=== PATIENT | male | born 1935 | race Caucasian/White ===

== ENCOUNTER 2016-04-10 19:57 | Emergency (ER) | payer MEDICARE, BC ==
[2016-04-10 20:07] VITALS: BP 156/66
--- NOTE | 2016-04-10 20:36 | UC ---
Hip/Pelvis Pain - HPI Summary HPI Summary: complaint of right hip and right sacral pain that started 2 days ago woke up in the morning with severe pain on monday couldn't straighten up to walk for approx 1-2 hours started after he was sleeping in a donut shape pillow for 12 hours constant steady dull pain,non radiating pain sometimes when walking he gets a stabbing pain in buttock and right hip painful for 2 days aching pain cannot ambulate normally due to pain took a tylenol without relief denies fever, incontinence states he is depressed, lost his a year ago feels lonely no one else understands his references and experiences lonely d/t missing friends who have states that he has thought about d/t age and his losses and wonders how much longer he will be alive thinks about how he might but has no plans to end his life PCP is Sunitha Astorga - History Of Current Complaint Chief Complaint: UCLowerExtremity Stated Complaint: PAINFUL HIP Time Seen by Provider: 04/10/16 20:07 Hx Obtained From: Patient - Allergies/Home Medications Allergies/Adverse Reactions: Allergies Allergy/AdvReac Type Severity Reaction Status Date / Time tree pollen Allergy Intermediate See Comment Uncoded 04/10/16 20:08 PMH/Surg Hx/FS Hx/Imm Hx Previously Healthy: Yes Cardiovascular History Of: Reports: Hypertension Respiratory History Of: Reports: Bronchitis - Surgical History Surgical History: Yes Surgery Procedure, Year, and Place: tonsils; lumps L neck benign. "CAROTID ARTERY CLEANED OUT" - Family History Known Family History: Positive: Hypertension Negative: Cardiac Disease, Diabetes - Social History Occupation: Retired Lives: Alone Alcohol Use: Rare Substance Use Type: None Smoking Status (MU): Former Smoker When Did the Patient Quit Smoking/Using Tobacco: Review of Systems Constitutional: Negative Skin: Negative Eyes: Negative ENT: Negative Respiratory: Negative Cardiovascular: Negative Gastrointestinal: Negative Genitourinary: Negative Motor: Negative Neurovascular: Negative Musculoskeletal: Other: - right hip pain, right sacral pain Neurological: Negative Psychological: Negative All Other Systems Reviewed And Are Negative: Yes Physical Exam Triage Information Reviewed: Yes Appearance: Well-Nourished, Ill-Appearing, Thin Vital Signs: Initial Vital Signs Temp 97.5 F 04/10/16 20:00 Pulse 63 04/10/16 20:00 Resp 16 04/10/16 20:00 BP 156/66 04/10/16 20:00 Pulse Ox 100 04/10/16 20:00 Vital Signs Reviewed: Yes Eyes: Positive: Conjunctiva Clear ENT: Positive: Pharynx normal, TMs normal. Negative: Nasal congestion Neck: Positive: Supple, No Lymphadenopathy Respiratory: Positive: Lungs clear, Normal breath sounds, No respiratory distress Cardiovascular: Positive: RRR, No Murmur, Pulses Normal Abdomen Description: Positive: Nontender, Soft Bowel Sounds: Positive: Present Musculoskeletal: Positive: No Edema, Other: - tenderness in sacrum-right side no point tenderness in right hip uneven gait ,spine bent laterally toward right side Neurological: Positive: Alert, Other: - patellar relfexes intact Psychological Exam: Normal Skin Exam: Normal Hip Injury Course/Dx - Course Course Of Treatment: exam completed. x-rays shows scoliosis ,DDD ,and osteoarthritis throughout- no acute injuries. will give info for bereavment services with [facility]. will send to PT for further evaluation and treatment - Differential Dx/Diagnosis Differential Diagnosis/HQI/PQRI: Dislocation, Fracture, Sprain, Strain Provider Diagnoses: adjustment disorder-greiving. osteoarthritis, right hip pain, right sacral pain Discharge - Discharge Plan Condition: Stable Disposition: HOME Patient Education Materials: Depression (ED), Low Back Strain (ED), Hip Pain ( ED) Referrals: Valencia Rossi MD [Primary Care Provider] - Additional Instructions: Take acetaminophen for pain relief Please call physical therapist for further evaluation and treatment of your hip and back pain. Consider calling [facility] for bereavment counseling ad followup with Dr Leela Walsh for evaluation. Please review your discharge instructions. If your symptoms do not improve please call your primary care provider or return to urgent care.
[2016-04-10] MEDS ORDERED: Acetaminophen TAB* 325 MG PO ONE (20:39)
--- NOTE | 2016-04-10 21:18 | RAD ---
HISTORY: Pain, right sciatic pain COMPARISONS: None VIEWS: 3, Frontal view of the pelvis with frontal and frog-leg views of the right hip FINDINGS: BONE DENSITY: Normal. BONES: There is no displaced fracture. JOINTS: There is mild osteoarthritis of the hips and SI joints. ALIGNMENT: There is no dislocation. SOFT TISSUES: Unremarkable. OTHER FINDINGS: There is a scoliotic curvature of the spine IMPRESSION: OSTEOARTHRITIS. NO ACUTE OSSEOUS INJURY. IF SYMPTOMS PERSIST, RECOMMEND REPEAT IMAGING.
--- NOTE | 2016-04-10 21:19 | RAD ---
HISTORY: Sciatic pain COMPARISONS: August 17, 2013 VIEWS: 3 , Frontal, lateral, and coned-down lateral sacral views of the lumbar spine FINDINGS: ALIGNMENT: There is a levoscoliotic curvature of the spine VERTEBRAL BODIES: The vertebral body heights are normal. The interpedicular distances are normal. JOINTS: There is osteoarthritis of the facet joints most pronounced at L3-L4, L4-L5, and L5-S1. INTERVERTEBRAL DISCS: There is diffuse loss of intervertebral disc height. SOFT TISSUE: Unremarkable. OTHER: The pelvis is unremarkable. The lung bases are clear. IMPRESSION: SCOLIOSIS. DEGENERATIVE DISC DISEASE AND OSTEOARTHRITIS.
== END 2016-04-10 21:40 | disposition home or self-care (01) ==
LOC: UCEAST 19:57
DX: F43.20 Adjustment disorder, unspecified (principal); M16.11 Unilateral primary osteoarthritis, right hip; M53.3 Sacrococcygeal disorders, not elsewhere classified; Z87.891 Personal history of nicotine dependence
CPT/HCPCS: 72100; 99212; A9270-GY; G0463

== ENCOUNTER 2016-06-06 20:09 | Emergency (ER) | payer MEDICARE, BC ==
[2016-06-06 20:57] VITALS: BP 167/52
--- NOTE | 2016-06-06 21:11 | ED ---
Throat Pain/Nasal Congestion - HPI Summary HPI Summary: 80M presents with something caught in throat for an hour. He states that he swallowed a capsule and that it got caught in his throat. He states he started to cough and feels that it got caught in his wind pipe. He states that he feels the capsule is dissolving. He coughed up some piece of the capsule. He denies any chest pain or SOB. He is able to swallow water without difficulty. He denies a history of choking on objects. He states that he throat feels very raw now. - History of Current Complaint Chief Complaint: EDThroatPain Time Seen by Provider: 06/06/16 20:47 - Allergies/Home Medications Allergies/Adverse Reactions: Allergies Allergy/AdvReac Type Severity Reaction Status Date / Time tree pollen Allergy Intermediate See Comment Uncoded 04/10/16 20:08 PMH/Surg Hx/FS Hx/Imm Hx Cardiovascular History: Reports: Hx Hypertension, Other Cardiovascular Problems/ Disorders - CAROTID ARTERY Respiratory History: Reports: Other Respiratory Problems/Disorders - PNEUMONIA 30 YRS AGO Musculoskeletal History: Reports: Hx Scoliosis - hx T11 compression - Surgical History Surgery Procedure, Year, and Place: tonsils; lumps L neck benign. "CAROTID ARTERY CLEANED OUT" - Immunization History Date of Tetanus Vaccine: Unk Date of Influenza Vaccine: None Infectious Disease History: No Infectious Disease History: Denies: History Other Infectious Disease, Traveled Outside the [place] in Last 30 Days - Family History Known Family History: Positive: Hypertension Negative: Cardiac Disease, Diabetes - Social History Alcohol Use: Rare Substance Use Type: Reports: None Smoking Status (MU): Former Smoker Review of Systems Negative: Fever Positive: Sore Throat Negative: Chest Pain Positive: Cough. Negative: Shortness Of Breath All Other Systems Reviewed And Are Negative: Yes Physical Exam Triage Information Reviewed: Yes Vital Signs On Initial Exam: Initial Vitals Temp Pulse Resp BP Pulse Ox 98.8 F 79 20 171/66 99 06/06/16 20:10 06/06/16 20:10 06/06/16 20:10 06/06/16 20:10 06/06/16 20:10 Vital Signs Reviewed: Yes Appearance: Positive: Well-Appearing Skin: Positive: Warm, Dry Head/Face: Positive: Normal Head/Face Inspection Eyes: Positive: Normal, Conjunctiva Clear ENT: Positive: Normal ENT inspection, Pharynx normal, TMs normal Respiratory/Lung Sounds: Positive: Clear to Auscultation, Breath Sounds Present , Other - able to tolerate drinking water. Negative: Unable to speak in full sentences Cardiovascular: Positive: Normal, RRR Diagnostics - Vital Signs Vital Signs Temp Pulse Resp BP Pulse Ox 06/06/16 20:56 98.8 F 69 18 167/52 100 06/06/16 20:10 98.8 F 79 20 171/66 99 - Laboratory Lab Statement: Any lab studies that have been ordered have been reviewed, and results considered in the medical decision making process. EENT Course/Dx - Course Course Of Treatment: 80M presents with getting a capsule stuck in his throat. He is able to hold his own secretions and able to swallow water. he states he can feel that is it disolving. His respirations are unlabored on exam. reassured patient that capsule will dissolve can use cough drops for pain and to follow up with primary. patient understands and agrees with plan - Differential Diagnoses Differential Diagnoses: Foreign Body, Pharyngitis - Diagnoses Provider Diagnoses: Foreign body in throat Discharge - Discharge Plan Condition: Good Disposition: HOME Patient Education Materials: Foreign Body in Pharynx (ED) Referrals: Valencia Rossi MD [Primary Care Provider] - Additional Instructions: Drink fluids as tolerate Can use cough drops for pain Follow up with primary care physician within 5 days Return to ED if unable to swallow or any new or worsening symptoms
== END 2016-06-06 21:43 | disposition home or self-care (01) ==
LOC: ED 20:09
DX: J02.9 Acute pharyngitis, unspecified (principal); R05 Cough; Z87.891 Personal history of nicotine dependence; T17.208A Unspecified foreign body in pharynx causing other injury, initial encounter; X58.XXXA Exposure to other specified factors, initial encounter; Y93.9 Activity, unspecified; Y92.89 Other specified places as the place of occurrence of the external cause
CPT/HCPCS: 99281

== ENCOUNTER 2016-11-21 18:14 | Emergency (ER) | payer BC, MEDICARE ==
[2016-11-21 18:30] VITALS: BP 147/60
--- NOTE | 2016-11-21 18:44 | UC ---
Back Pain HPI - HPI Summary HPI Summary: 81 YEAR OLD MALE PRESENTS WITH RIGHT LOWER BACK PAIN/SPASM - History of Current Complaint Chief Complaint: UCLowerExtremity Stated Complaint: BACK & HIP PAIN,LEG WOUND Time Seen by Provider: 11/21/16 18:37 Hx Obtained From: Patient Onset/Duration: Sudden Onset Timing: Lasting Minutes Severity Initially: Moderate Severity Currently: Moderate Pain Scale Used: 0-10 Numeric - 6 Character: Sharp, Spasmodic Aggravating: Movement, Bending Alleviating: Rest, Position - Allergies/Home Medications Allergies/Adverse Reactions: Allergies Allergy/AdvReac Type Severity Reaction Status Date / Time tree pollen Allergy Intermediate See Comment Uncoded 04/10/16 20:08 Home Medications: Home Medications buPROPion TAB* [Wellbutrin TAB*] 75 mg PO BID 11/21/16 [History Confirmed ] PMH/Surg Hx/FS Hx/Imm Hx Previously Healthy: Yes - Surgical History Surgical History: Yes Surgery Procedure, Year, and Place: tonsils; lumps L neck benign. "CAROTID ARTERY CLEANED OUT" - Family History Known Family History: Positive: Hypertension Negative: Cardiac Disease, Diabetes - Social History Alcohol Use: Rare Substance Use Type: None Smoking Status (MU): Former Smoker When Did the Patient Quit Smoking/Using Tobacco: 1970's Review of Systems Constitutional: Negative Skin: Negative Eyes: Negative ENT: Negative Respiratory: Negative Cardiovascular: Negative Gastrointestinal: Negative Genitourinary: Negative Motor: Negative Neurovascular: Negative Musculoskeletal: Myalgia, Other: - RIGHT LOWER BACK PAIN/SPASM Neurological: Negative Psychological: Negative All Other Systems Reviewed And Are Negative: Yes Physical Exam Triage Information Reviewed: Yes Vital Signs: Initial Vital Signs Temp 37.1 C 11/21/16 18:21 Pulse 69 11/21/16 18:21 Resp 16 11/21/16 18:21 BP 147/60 11/21/16 18:21 Pulse Ox 99 11/21/16 18:21 Eye Exam: Normal ENT Exam: Normal Dental Exam: Normal Neck exam: Normal Neck: Positive: 1 Respiratory Exam: Normal Cardiovascular Exam: Normal Abdominal Exam: Normal Musculoskeletal: Positive: Other: - RIGHT LOWER BACK PAIN/SPASM Neurological Exam: Normal Psychological Exam: Normal Skin Exam: Normal Back Pain Course/Dx - Differential Dx/Diagnosis Provider Diagnoses: RIGHT LOWER BACK PAIN/SPASM Discharge - Discharge Plan Condition: Stable Disposition: HOME Prescriptions: Cephalexin CAP* [Keflex CAP*] 500 mg PO TID #30 cap Methocarbamol TAB* [Robaxin 500 MG TAB*] 500 mg PO TID PRN #30 tab PRN Reason: Spasms - Back Naproxen [Naprosyn 500 mg] 500 mg PO BID PRN #30 tab PRN Reason: Pain Patient Education Materials: Muscle Spasm (ED), Acute Wound Care (ED) Referrals: Tammi Tolliver [Medical Doctor] - Valencia Rossi MD [Primary Care Provider] -
== END 2016-11-21 19:09 | disposition home or self-care (01) ==
LOC: UCEAST 18:14
DX: M54.5 Low back pain (principal); M62.830 Muscle spasm of back; Z87.891 Personal history of nicotine dependence
CPT/HCPCS: 99212; G0463

== ENCOUNTER 2017-01-02 11:48 | Emergency (ER) | payer BC, MEDICARE ==
[2017-01-02 15:00] VITALS: BP 158/56
--- NOTE | 2017-01-02 16:27 | UC ---
Hip/Pelvis Pain - HPI Summary HPI Summary: Right hip pain on/off began April 2016, had an acute episode of pain with muscle spasm in November pain returns now--no injury - History Of Current Complaint Hx Obtained From: Patient Mechanism Of Injury: none Onset/Duration: Gradual Onset, Worse Since - pain few days Timing: Constant Severity Initially: Moderate Severity Currently: Moderate Pain Intensity: 4 Pain Scale Used: 0-10 Numeric Location: Diffuse - right hip and SI Joint Character Of Pain: Aching, Spasmodic, Stiffness Aggravating Factor(s): Movement Alleviating Factor(s): Nothing Associated Signs And Symptoms: Positive: Negative <Maribel Edwards - Last Filed: 01/02/17 16:39> <Mavis Durand - Last Filed: 01/02/17 17:23> - History Of Current Complaint Chief Complaint: UCLowerExtremity Stated Complaint: HIP PAIN Time Seen by Provider: 01/02/17 15:22 - Allergies/Home Medications Allergies/Adverse Reactions: Allergies Allergy/AdvReac Type Severity Reaction Status Date / Time tree pollen Allergy Intermediate See Comment Uncoded 01/02/17 15:00 PMH/Surg Hx/FS Hx/Imm Hx Previously Healthy: No Cardiovascular History: Cardiac Disease, Hypertension - Surgical History Surgical History: Yes Surgery Procedure, Year, and Place: tonsils; lumps L neck benign. "CAROTID ARTERY CLEANED OUT" - Family History Known Family History: Positive: Hypertension Negative: Cardiac Disease, Diabetes - Social History Occupation: Retired Lives: With Family Alcohol Use: Rare Substance Use Type: None Smoking Status (MU): Former Smoker When Did the Patient Quit Smoking/Using Tobacco: 1970's <Maribel Edwards - Last Filed: 01/02/17 16:39> Review of Systems Constitutional: Negative Skin: Negative Eyes: Negative ENT: Negative Respiratory: Negative Cardiovascular: Negative Gastrointestinal: Negative Genitourinary: Negative Motor: Negative Neurovascular: Negative Musculoskeletal: Arthralgia - right SI Joint area Neurological: Negative Psychological: Negative Is Patient Immunocompromised?: No All Other Systems Reviewed And Are Negative: Yes <Maribel Edwards - Last Filed: 01/02/17 16:39> Physical Exam Triage Information Reviewed: Yes Appearance: Well-Appearing, Well-Nourished, Pain Distress - right hip/SI Joint Vital Signs: Initial Vital Signs Temp 98.1 F 01/02/17 14:44 Pulse 58 01/02/17 14:44 Resp 16 01/02/17 14:44 BP 158/56 01/02/17 14:44 Pulse Ox 100 01/02/17 14:44 Vital Signs Reviewed: Yes Eye Exam: Normal Eyes: Positive: Conjunctiva Clear ENT Exam: Normal ENT: Positive: Normal ENT inspection, Hearing grossly normal. Negative: Nasal congestion, Nasal drainage, Trismus, Muffled/hoarse voice Dental Exam: Normal Neck exam: Normal Neck: Positive: Supple, Nontender Respiratory Exam: Normal Respiratory: Positive: Chest non-tender, No respiratory distress, No accessory muscle use Cardiovascular Exam: Normal Cardiovascular: Positive: RRR, Pulses Normal, Brisk Capillary Refill Musculoskeletal Exam: Normal Musculoskeletal: Positive: Strength Intact, ROM Intact, No Edema Neurological Exam: Normal Neurological: Positive: Alert, Muscle Tone Normal Psychological Exam: Normal Skin Exam: Normal <Maribel Edwards - Last Filed: 01/02/17 16:39> Vital Signs: Initial Vital Signs Temp 98.1 F 01/02/17 14:44 Pulse 58 01/02/17 14:44 Resp 16 01/02/17 14:44 BP 158/56 01/02/17 14:44 Pulse Ox 100 01/02/17 14:44 <Mavis Durand - Last Filed: 01/02/17 17:23> Hip Injury Course/Dx - Course Course Of Treatment: use naproxen as RX, pt and ortho referal, follow BP with PCP - Differential Dx/Diagnosis Differential Diagnosis/HQI/PQRI: Contusion, Dislocation, Fracture, Sciatica, Sprain, Strain Provider Diagnoses: Arthritis right Hip, Sciatica (R), High Blood pressure in poor control <Maribel Edwards - Last Filed: 01/02/17 16:39> Discharge <Maribel Edwards - Last Filed: 01/02/17 16:39> <Mavis Durand - Last Filed: 01/02/17 17:23> - Discharge Plan Condition: Stable Disposition: HOME Patient Education Materials: Osteoarthritis (ED), Hypertension (ED), Hip Pain ( ED) Referrals: Hao Lazaro MD [Medical Doctor] - 5 Days OValencia Carr MD [Primary Care Provider] - 2 Weeks Attestation Statement User Type: Provider - I was available for consult. This patient was seen by the JAMES. The patient was not presented to, seen by, or examined by me. -Anai <Mavis Durand - Last Filed: 01/02/17 17:23>
== END 2017-01-02 16:10 | disposition home or self-care (01) ==
LOC: UCEAST 11:48
DX: M16.11 Unilateral primary osteoarthritis, right hip (principal); I10 Essential (primary) hypertension; Z87.891 Personal history of nicotine dependence; M54.30 Sciatica, unspecified side; R03.0 Elevated blood-pressure reading, without diagnosis of hypertension
CPT/HCPCS: 99211; G0463

== ENCOUNTER 2017-05-05 15:27 | Emergency (ER) | payer MEDICARE, OTHER ==
[2017-05-05 20:24] VITALS: BP 159/62
--- NOTE | 2017-05-05 21:20 | UC ---
Skin Complaint HPI - HPI Summary HPI Summary: c/o cystic mass on right leg. This mass has been present for years since an insect bite. He received antibiotics in December after it became infected. The site healed and left a scab that fell off last week and ever since he has noticed some material oozing out of it. Denies pain, fever or swelling. Has been swimming every day and today he covered it with a plastic bandage. - History of Current Complaint Chief Complaint: UCLowerExtremity Time Seen by Provider: 05/05/17 21:09 Stated Complaint: FOOT COMPLAINT Pain Intensity: 0 - Allergy/Home Medications Allergies/Adverse Reactions: Allergies Allergy/AdvReac Type Severity Reaction Status Date / Time tree pollen Allergy Intermediate See Comment Uncoded 05/05/17 20:13 Home Medications: Home Medications Clopidogrel TAB* [Plavix TAB*] 75 mg PO DAILY 05/05/17 [History Confirmed ] buPROPion TAB* [Wellbutrin TAB*] 75 mg PO DAILY 05/05/17 [History Confirmed 05/21] Review of Systems Constitutional: Negative Skin: Other - mass leg All Other Systems Reviewed And Are Negative: Yes PMH/Surg Hx/FS Hx/Imm Hx Previously Healthy: Yes Cardiovascular History: Cardiac Disease, Hypertension - Surgical History Surgical History: Yes Surgery Procedure, Year, and Place: TONSILECTOMY. lumps L neck benign. Lt "CAROTID ARTERY CLEANED OUT" - DENIES ANY STENTS - Family History Known Family History: Positive: Hypertension Negative: Cardiac Disease, Diabetes - Social History Alcohol Use: Rare Substance Use Type: None Smoking Status (MU): Former Smoker When Did the Patient Quit Smoking/Using Tobacco: Physical Exam Triage Information Reviewed: Yes Appearance: Well-Appearing Vital Signs: Initial Vital Signs Temp 98.7 F 05/05/17 20:18 Pulse 80 05/05/17 20:18 Resp 18 05/05/17 20:18 BP 159/62 05/05/17 20:18 Pulse Ox 100 05/05/17 20:18 Vital Signs Reviewed: Yes Respiratory: Positive: Chest non-tender Cardiovascular: Positive: Pulses Normal, Brisk Capillary Refill Musculoskeletal Exam: Normal Skin Exam: Other - cyst on lateral aspect right leg with 2 orifices with fistulization, caseous material easily expressed from it Course/Dx - Course Course Of Treatment: follow up with dermatology as scheduled on 05-11-17 - Diagnoses Provider Diagnoses: seborrheic cyst Discharge - Discharge Plan Condition: Stable Disposition: HOME Patient Education Materials: Epidermal Inclusion Cysts (ED) Referrals: Valencia Rossi MD [Primary Care Provider] -
== END 2017-05-05 21:54 | disposition home or self-care (01) ==
LOC: UCEAST 15:27
DX: L72.8 Other follicular cysts of the skin and subcutaneous tissue (principal)
CPT/HCPCS: 99212; G0463

== ENCOUNTER 2018-02-01 21:00 | Emergency (ER) | payer MEDICARE, OTHER ==
[2018-02-01 21:20] VITALS: BP 159/53
--- NOTE | 2018-02-01 22:34 | UC ---
Eye Complaint HPI - HPI Summary HPI Summary: 82 year old male presents with onset of sensation of something lingering within in vision in the left eye. States he primarily notices this when he looks down and to the left. If he then looks up and to the right it will follow then slowly drop down out of his line of sight. Denies injury, headache, eye pain, redness, discharge, photophobia, blurred or double vision. - History of Current Complaint Chief Complaint: UCEye Stated Complaint: TROUBLE SEEING OUT OF ONE EYE Time Seen by Provider: 02/01/18 22:14 Hx Obtained From: Patient Onset/Duration: Sudden Onset, Lasting Hours Severity Currently: None Pain Intensity: 0 Associated Signs And Symptoms: Positive: Vision Impairment Left. Negative: Photophobia, Drainage (Clear), Drainage (Purulent), Vision Impairment Right, Fever, Swelling - Allergies/Home Medications Allergies/Adverse Reactions: Allergies Allergy/AdvReac Type Severity Reaction Status Date / Time tree pollen Allergy Intermediate See Comment Uncoded 02/01/18 21:09 PMH/Surg Hx/FS Hx/Imm Hx Endocrine History: Dyslipidemia Cardiovascular History: Cardiac Disease, Hypertension Other Cardiovascular History: Carotid stenosis - Surgical History Surgical History: Yes Surgery Procedure, Year, and Place: TONSILECTOMY. lumps L neck benign. Lt "CAROTID ARTERY CLEANED OUT" - DENIES ANY STENTS - Family History Known Family History: Positive: Hypertension Negative: Cardiac Disease, Diabetes - Social History Occupation: Retired Lives: With Family Alcohol Use: Rare Substance Use Type: None Smoking Status (MU): Former Smoker When Did the Patient Quit Smoking/Using Tobacco: Review of Systems Constitutional: Negative Eyes: Other - See HPI Is Patient Immunocompromised?: No All Other Systems Reviewed And Are Negative: Yes Physical Exam Triage Information Reviewed: Yes Appearance: Well-Appearing, No Pain Distress, Well-Nourished Vital Signs: Initial Vital Signs Temp 99.0 F 02/01/18 21:11 Pulse 71 02/01/18 21:11 Resp 18 02/01/18 21:11 BP 159/53 02/01/18 21:11 Pulse Ox 97 02/01/18 21:11 Eyes: Positive: Conjunctiva Clear, Other: - PERRLA. Extraoccular eye movements intact. Fundascopic exam limited but no retinal hemorrhages, detachment, or papiloedema noted.. Negative: Discharge Respiratory: Positive: Lungs clear, Normal breath sounds, No respiratory distress Cardiovascular: Positive: RRR, No Murmur Neurological: Positive: Alert Skin Exam: Normal Eye Complaint Course/Dx - Course Course Of Treatment: 82 year old male with onset of painless shadow-like visual floater to his left eye today. Denies injury. The fundascopic exam was limited however history is suspicious for a retinal detachment. Case was discussed with Dr. Awan. Patient is to call opthalmology in the morning for next available appointment. Warning symptoms were reviewed. Verbalizes understanding and agrees with POC. - Differential Dx/Diagnosis Differential Diagnosis/HQI/PQRI: Detached Retina, Retinal Artery Occlusion, Other - Temporal arteritis Provider Diagnoses: Eye floater Discharge - Sign-Out/Discharge Documenting (check all that apply): Patient Departure All imaging exams completed and their final reports reviewed: No Studies - Discharge Plan Condition: Stable Disposition: HOME Patient Education Materials: Visual Floaters (ED) Referrals: Valencia Rossi MD [Primary Care Provider] - Anthony Barker MD [Medical Doctor] - As Soon As Possible (Call tomorrow morning for appointment) Additional Instructions: I did not see any cause for your symptoms on your exam however your history is concerning for a possible detached retina. Call Dr. Barker's office first thing in the morning to schedule the next available appointment for evaluation. Seek immediate medical attention in the emergency room if you develop fever greater than 100.5 F, have a headache, changes in vision, loss of vision, or any worsening of symptoms. - Billing Disposition and Condition Condition: STABLE Disposition: Home
== END 2018-02-01 22:45 | disposition home or self-care (01) ==
LOC: UCEAST 21:00
DX: H43.392 Other vitreous opacities, left eye (principal); Z87.891 Personal history of nicotine dependence
CPT/HCPCS: 99212; G0463

== ENCOUNTER 2018-07-01 19:44 | Emergency (ER) | payer MEDICARE, OTHER ==
[2018-07-01 19:55] VITALS: BP 152/66
--- NOTE | 2018-07-01 20:11 | UC ---
Lower Extremity/Ankle HPI - HPI Summary HPI Summary: day 2 of left foot pain no trauma pain along bottom of midfoot from heal to ball of foot---no pain at rest hurts when he stands and walks - History of Current Complaint Chief Complaint: UCLowerExtremity Stated Complaint: L FOOT COMPLAINT Time Seen by Provider: 07/01/18 20:09 Hx Obtained From: Patient Onset/Duration: Sudden Onset, Lasting Days - 2, Still Present Pain Intensity: 8 Pain Scale Used: 0-10 Numeric Aggravating Factor(s): Standing, Ambulation Alleviating Factor(s): Rest, Elevation Able to Bear Weight: Yes - Allergies/Home Medications Allergies/Adverse Reactions: Allergies Allergy/AdvReac Type Severity Reaction Status Date / Time tree pollen Allergy Intermediate See Comment Uncoded 07/01/18 19:55 PMH/Surg Hx/FS Hx/Imm Hx Previously Healthy: No Cardiovascular History: Atrial Fibrillation Psychological History: Depression - Surgical History Surgical History: Yes Surgery Procedure, Year, and Place: TONSILECTOMY. lumps L neck benign. Lt "CAROTID ARTERY CLEANED OUT" - DENIES ANY STENTS - Family History Known Family History: Positive: Hypertension Negative: Cardiac Disease, Diabetes - Social History Occupation: Retired Lives: With Family Alcohol Use: Rare Substance Use Type: None Smoking Status (MU): Former Smoker When Did the Patient Quit Smoking/Using Tobacco: 1970s Review of Systems All Other Systems Reviewed And Are Negative: Yes Constitutional: Positive: Negative Skin: Positive: Negative Eyes: Positive: Negative ENT: Positive: Negative Respiratory: Positive: Negative Cardiovascular: Positive: Negative Gastrointestinal: Positive: Negative Genitourinary: Positive: Negative Motor: Positive: Negative Neurovascular: Positive: Negative Musculoskeletal: Positive: Arthralgia - of left foot Neurological: Positive: Negative Psychological: Positive: Negative Is Patient Immunocompromised?: Yes Physical Exam Triage Information Reviewed: Yes Appearance: Well-Appearing, No Pain Distress, Well-Nourished Vital Signs: Initial Vital Signs Temp 97.5 F 07/01/18 19:50 Pulse 80 07/01/18 19:50 Resp 16 07/01/18 19:50 BP 152/66 07/01/18 19:50 Pulse Ox 99 07/01/18 19:50 Vital Signs Reviewed: Yes Eye Exam: Normal Eyes: Positive: Conjunctiva Clear ENT Exam: Normal ENT: Positive: Normal ENT inspection, Hearing grossly normal. Negative: Trismus , Muffled voice, Hoarse voice Dental Exam: Normal Neck exam: Normal Neck: Positive: Supple, Nontender Respiratory Exam: Normal Respiratory: Positive: Chest non-tender, No respiratory distress, No accessory muscle use Cardiovascular Exam: Normal Cardiovascular: Positive: RRR, Pulses Normal, Brisk Capillary Refill Musculoskeletal Exam: Normal Musculoskeletal: Positive: Strength Intact, ROM Intact, No Edema Neurological Exam: Normal Neurological: Positive: Alert, Muscle Tone Normal Psychological Exam: Normal Skin Exam: Normal Lower Extremity Course/Dx - Course Course Of Treatment: cam boot plantar exercises, follow with pcp/ podiatry, tylenol for pain - Differential Dx/Diagnosis Provider Diagnosis: Plantar fasciitis of left foot, Hypertension Discharge - Sign-Out/Discharge Documenting (check all that apply): Patient Departure All imaging exams completed and their final reports reviewed: No Studies - Discharge Plan Condition: Stable Disposition: HOME Patient Education Materials: Acetaminophen (By mouth), Plantar Fasciitis Exercises (GEN), Plantar Fasciitis (ED), Hypertension (ED) Referrals: Valencia Rossi MD [Primary Care Provider] - 1 Week - Billing Disposition and Condition Condition: STABLE Disposition: Home
== END 2018-07-01 20:38 | disposition home or self-care (01) ==
LOC: UCEAST 19:44
DX: M72.2 Plantar fascial fibromatosis (principal); I10 Essential (primary) hypertension; I48.91 Unspecified atrial fibrillation; F32.9 Major depressive disorder, single episode, unspecified; Z87.891 Personal history of nicotine dependence
CPT/HCPCS: 99212; G0463

== ENCOUNTER 2019-06-10 16:06 | Emergency (ER) | payer MEDICARE, OTHER ==
--- NOTE | 2019-06-10 16:49 | ED ---
Complex/Multi-Sys Presentation - HPI Summary HPI Summary: 83 year old male presents with increasing confusion over the past couple weeks. States today that he states he felt funny and he called his primary but does not recall calling his primary. returned case inspector states he was wearing the same close as when she saw him on Monday. He has no one checking up on him. He denies any complaints at the moment. He states that he does have occasional facial pressure which had for a while now. He denies any chest pressures or shortness of breath. No dizziness. No recent illness. No cough. No nausea vomiting. No abdominal pain. No diarrhea. returned case inspector is concerned that he is not eating or drinking. He does not remember what he ate today or making the phone call or PMH. - History Of Current Complaint Chief Complaint: EDWeakness Time Seen by Provider: 06/10/19 16:37 - Allergies/Home Medications Allergies/Adverse Reactions: Allergies Allergy/AdvReac Type Severity Reaction Status Date / Time tree pollen Allergy Intermediate See Comment Uncoded 06/10/19 16:08 Home Medications: Home Medications amLODIPine TAB* [Norvasc 5 mg TAB*] 5 mg PO DAILY 07/21/12 [History Confirmed ] Telmisartan (NF) [Micardis (NF)] 80 mg PO DAILY 06/16/13 [History Confirmed 12/21] Clopidogrel TAB* [Plavix TAB*] 75 mg PO DAILY 05/05/17 [History Confirmed ] buPROPion TAB* [Wellbutrin TAB*] 75 mg PO DAILY 05/05/17 [History Confirmed 12/21] PMH/Surg Hx/FS Hx/Imm Hx Endocrine/Hematology History: Denies: Hx Diabetes, Hx Thyroid Disease Cardiovascular History: Reports: Hx Hypertension, Other Cardiovascular Problems/ Disorders - CAROTID ARTERY Denies: Hx Pacemaker/ICD Respiratory History: Reports: Other Respiratory Problems/Disorders - PNEUMONIA 30 YRS AGO Denies: Hx Asthma, Hx Chronic Obstructive Pulmonary Disease (COPD) GI History: Denies: Hx Ulcer History: Reports: Hx Renal Disease - UNDER CARE WITH DR LEY, RENAL INSUFFICIENCY Denies: Hx Dialysis Musculoskeletal History: Reports: Hx Scoliosis - hx T11 compression Sensory History: Denies: Hx Hearing Aid Psychiatric History: Denies: Hx Panic Disorder - Surgical History Surgery Procedure, Year, and Place: TONSILECTOMY. lumps L neck benign. Lt "CAROTID ARTERY CLEANED OUT" - DENIES ANY STENTS - Immunization History Date of Tetanus Vaccine: Unk Date of Influenza Vaccine: None Infectious Disease History: No Infectious Disease History: Denies: Hx Clostridium Difficile, Hx Hepatitis, Hx Human Immunodeficiency Virus (HIV), Hx of Known/Suspected MRSA, Hx Shingles, Hx Tuberculosis, Hx Known/ Suspected VRE, Hx Known/Suspected VRSA, History Other Infectious Disease, Traveled Outside the [place] in Last 30 Days - Family History Known Family History: Positive: Hypertension Negative: Cardiac Disease, Diabetes - Social History Alcohol Use: Rare Substance Use Type: Reports: None Smoking Status (MU): Former Smoker Review of Systems Negative: Fever Positive: Other - facial pressure Negative: Chest Pain Negative: Shortness Of Breath Neurological/Mental Status: Other - confusion All Other Systems Reviewed And Are Negative: Yes Physical Exam Triage Information Reviewed: Yes Vital Signs On Initial Exam: Initial Vitals Temp Pulse Resp BP Pulse Ox 98.7 F 76 18 171/75 98 06/10/19 16:08 06/10/19 16:08 06/10/19 16:08 06/10/19 16:08 06/10/19 16:08 Vital Signs Reviewed: Yes Appearance: Positive: Well-Appearing Skin: Positive: Warm, Dry Head/Face: Positive: Normal Head/Face Inspection Eyes: Positive: Normal, EOMI, VIRY, Conjunctiva Clear ENT: Positive: Normal ENT inspection, Pharynx normal, TMs normal Respiratory/Lung Sounds: Positive: Clear to Auscultation, Breath Sounds Present Cardiovascular: Positive: Normal, RRR Abdomen Description: Positive: Nontender, Soft Bowel Sounds: Positive: Present Musculoskeletal: Positive: Normal Neurological: Positive: Sensory/Motor Intact, Alert, Oriented to Person Place, Time, CN Intact II-III Psychiatric: Positive: Normal - Gar[place] Coma Scale Best Eye Response: 4 - Spontaneous Best Motor Response: 5 - Purposeful Movement Best Verbal Response: 4 - Confused Coma Scale Total: 13 Procedures - Sedation Patient Received Moderate/Deep Sedation with Procedure: No Diagnostics - Vital Signs Vital Signs Temp Pulse Resp BP Pulse Ox 06/10/19 16:08 98.7 F 76 18 171/75 98 - Laboratory Result Diagrams: 06/10/19 16:55 06/10/19 16:55 Lab Statement: Any lab studies that have been ordered have been reviewed, and results considered in the medical decision making process. - CT brain CT Interpretation Completed By: Radiologist Summary of CT Findings: IMPRESSION: NO ACUTE INTRACRANIAL PATHOLOGY. - EKG No standard instances Cardiac Rate: NL EKG Rhythm: Sinus Rhythm EKG Comparison: No Significant Change Summary of EKG Findings: sinus rhythm Re-Evaluation - Re-Evaluation First Eval Re-Evaluation Time: 19:10 Comment: feels good Second Eval Re-Evaluation Time: 19:38 Complex Multi-Symp Course/Dx Course Of Treatment: 83 year old male presents with increasing confusion over the past couple weeks. States today that he states he felt funny and he called his primary but does not recall calling his primary. returned case inspector states he was wearing the same close as when she saw him on Monday. He has no one checking up on him. He denies any complaints at the moment. He states that he does have occasional facial pressure which had for a while now. He denies any chest pressures or shortness of breath. No dizziness. No recent illness. No cough. No nausea vomiting. No abdominal pain. No diarrhea. returned case inspector is concerned that he is not eating or drinking. He does not remember what he ate today or making the phone call or PMH. On exam has normal neuro exam. No neuro deficits noted. CT brain is normal. wbc normal. Renal function similar to previous. Urine shows no infection. Discussing admission as patient does not have any social support at home and is getting more increasingly confused and patient declined. patient is currently alert and orientated and able to make decision for admission. discussed why should be admitted and why concerned for safety and patient still declined. Told follow-up with primary. Patient understands agrees plan. - Diagnoses Differential Diagnoses/HQI/PQRI: CVA, Metabolic Abnormality, Urinary Tract Infection Provider Diagnoses: Weakness, Confusion Discharge ED - Sign-Out/Discharge Documenting (check all that apply): Patient Departure - Discharge Plan Condition: Good Disposition: HOME Patient Education Materials: Weakness (ED) Referrals: Valencia Rossi MD [Primary Care Provider] - Additional Instructions: follow up with primary within 5 days Return to ED if develop any new or worsening symptoms - Billing Disposition and Condition Condition: GOOD Disposition: Home
[2019-06-10 17:20] LABS: ABS Basophils 0.1 10^3/ul (0-0.2); ABS Eosinophils 0.3 10^3/ul (0-0.6); ABS Monocytes 0.6 10^3/ul (0-0.8); Eosinophil % 3.7 %; Hematocrit 40 % (42-52); Hemoglobin 13.6 g/dL (14.0-18.0); Lymphocyte % 14.3 %; Mean Corpuscular HGB Conc 34 g/dL (31-36); Mean Corpuscular Hemoglobin 31 pg (27-31); Mean Corpuscular Volume 92 fL (80-94); Mean Platelet Volume 9.7 fL (7.4-10.4); Platelet Count 168 10^3/uL (150-450); Red Blood Count 4.35 10^6 /uL (4.18-5.48); Red Cell Distribution Width 14 % (10-15); White Blood Count 6.9 10^3/uL (3.5-10.8)
[2019-06-10 17:34] LABS: Troponin I 0.01 ng/mL (<0.03)
[2019-06-10 17:47] LABS: Albumin 3.9 g/dL (3.2-5.2); Albumin/Globulin Ratio 1.7 (1-3); BUN/Creatinine Ratio 22.7 (8-20); C Reactive Protein 1.46 mg/L (<8.01); Calcium 9.2 mg/dL (8.6-10.3); EGFR African American 44.9 (>60); EGFR Non-African American 37.1 (>60); Globulin 2.3 g/dL (2-4); Magnesium 2.2 mg/dL (1.9-2.7); Total Bilirubin 0.4 mg/dL (0.2-1.0); Total Protein 6.2 g/dL (6.4-8.9)
[2019-06-10 17:55] LABS: TSH (Thyroid Stimulating Horm) 2.04 mcIU/mL (0.34-5.60)
[2019-06-10 18:19] LABS: Urine Appearance Clear; Urine Bilirubin Negative (Negative); Urine Blood Negative (Negative); Urine Color Yellow; Urine Glucose Negative (Negative); Urine Ketones Negative (Negative); Urine Nitrite Negative (Negative); Urine Protein 2+(100 mg/dL) (Negative); Urine Specific Gravity 1.015 (1.010-1.030); Urine Urobilinogen Negative (Negative)
[2019-06-10 18:29] LABS: Urine Bacteria Absent (Absent); Urine Red Blood Cell Trace(0-2/hpf) (Absent); Urine White Blood Cell Trace(0-5/hpf) (Absent)
[2019-06-10 19:57] VITALS: BP 168/65
== END 2019-06-10 19:53 | disposition home or self-care (01) ==
LOC: ED 16:06
DX: R53.1 Weakness (principal); R41.0 Disorientation, unspecified; I10 Essential (primary) hypertension; Z79.01 Long term (current) use of anticoagulants; Z79.899 Other long term (current) drug therapy; Z91.09 Other allergy status, other than to drugs and biological substances; Z87.891 Personal history of nicotine dependence
CPT/HCPCS: 36415; 70450; 80053; 81003; 81015; 83605; 83735; 84443; 84484; 85025; 86140; 87086; 93005; 99283

== ENCOUNTER 2019-11-21 16:59 | Observation (INO) ==
[2019-11-21] MEDS ORDERED: NS 0.9% 1000 ml BAG 1,000 ML IV ONE (18:29)
[2019-11-21 18:55] LABS: ABS Basophils 0.1 10^3/ul (0-0.2); ABS Eosinophils 0.2 10^3/ul (0-0.6); ABS Lymphocytes 0.8 10^3/ul (1.0-4.8); ABS Monocytes 0.5 10^3/ul (0-0.8); ABS Neutrophils 5.2 10^3/ul (1.5-7.7); Eosinophil % 2.2 %; Hematocrit 43 % (42-52); Lymphocyte % 12.1 %; Mean Corpuscular HGB Conc 35 g/dL (31-36); Mean Corpuscular Hemoglobin 32 pg (27-31); Mean Corpuscular Volume 91 fL (80-94); Mean Platelet Volume 9.4 fL (7.4-10.4); Platelet Count 169 10^3/uL (150-450); Red Blood Count 4.69 10^6 /uL (4.18-5.48); Red Cell Distribution Width 14 % (10-15); White Blood Count 6.7 10^3/uL (3.5-10.8)
[2019-11-21 19:07] LABS: Albumin 4.6 g/dL (3.2-5.2); Albumin/Globulin Ratio 1.8 (1-3); BUN/Creatinine Ratio 19.2 (8-20); C Reactive Protein 2.02 mg/L (<8.01); Calcium 9.9 mg/dL (8.6-10.3); Globulin 2.6 g/dL (2-4); Magnesium 2.4 mg/dL (1.9-2.7); Potassium 4.8 mmol/L (3.5-5.0); Total Bilirubin 0.9 mg/dL (0.2-1.0); Total Protein 7.2 g/dL (6.4-8.9)
[2019-11-21 19:08] LABS: Troponin I 0.01 ng/mL (<0.03)
[2019-11-21 19:34] LABS: TSH Ultra Thyroid Stim Horm 1.93 mcIU/mL (0.34-5.60)
[2019-11-21 19:54] LABS: Urine Appearance Clear; Urine Bilirubin Negative (Negative); Urine Blood Negative (Negative); Urine Color Yellow; Urine Glucose Negative (Negative); Urine Ketones Negative (Negative); Urine Nitrite Negative (Negative); Urine Protein 2+(100 mg/dL) (Negative); Urine Specific Gravity 1.011 (1.010-1.030); Urine Urobilinogen Negative (Negative)
[2019-11-21 19:55] LABS: Urine Bacteria Absent (Absent); Urine Red Blood Cell Trace(0-2/hpf) (Absent); Urine Squamous Epithelial Cell Present (Absent); Urine White Blood Cell Absent (Absent)
[2019-11-21] MEDS ORDERED: hydrALAZINE 20 mg/ml 1 ML Vial IV IV SLOW PU PRN (22:08)
[2019-11-21 22:33] LABS: Troponin I 0.01 ng/mL (<0.03)
[2019-11-22] MEDS ORDERED: Haloperidol 5 mg/ml SDV IV/IM 5 MG/ML AMP IM PRN (03:54)
[2019-11-22 13:33] VITALS: BP 147/52
== END 2019-11-22 15:50 | disposition home or self-care (01) ==
LOC: ED 16:59 → MED 16:59
PROVIDERS: ADMIT Nurse Practitioner Acute Care; ATTEND Internal Medicine